=== PATIENT | female | born 1995 | race Two or more races ===

== ENCOUNTER 2021-08-11 22:18 | Emergency (ER) | payer MEDICAID ==
[~2021-08-11] VITALS: Ht 149.9 cm; Wt 67.0 kg
[2021-08-11 22:26] VITALS: BP 133/87
[2021-08-11 23:59] LABS: CLARITY URINE CLEAR (CLEAR); COLOR URINE YELLOW (YELLOW); KETONES URINE 1+ (NEGATIVE); LEUKOCYTE ESTERASE URINE NEGATIVE (NEGATIVE); NITRITE URINE NEGATIVE (NEGATIVE); OCCULT BLOOD URINE NEGATIVE (NEGATIVE); PROTEIN URINE NEGATIVE (NEGATIVE); SPECIFIC GRAVITY URINE 1.029 (1.005-1.030)
[2021-08-12 00:13] LABS: BASOPHILS % 0.9 % (0.0-2.0); EOSINOPHILS % 0.9 % (0.0-5.0); HEMATOCRIT. 39.8 % (36.0-48.0); HEMOGLOBIN. 13.4 g/dL (12.0-16.0); LYMPHOCYTES % 29.6 % (20.0-50.0); MEAN CORPUSCULAR HEMOGLOBIN 30.2 pg (28.0-32.0); MEAN PLATELET VOLUME 9.5 fl (7.4-10.4); NEUTROPHILS % 56.6 % (40.0-76.0); PLATELET 320 x1000/uL (130-400); RED BLOOD CELL COUNT 4.42 mill/uL (4.2-5.4)
[2021-08-12 00:21] LABS: CHLORIDE 107 mEq/L (98-107)
[2021-08-12] MEDS ORDERED: IBUP-2029 MT (00:29)
== END 2021-08-12 02:07 | disposition home or self-care (01) ==
LOC: ER 22:18
DX: R59.0 Localized enlarged lymph nodes (principal); R53.81 Other malaise; R03.0 Elevated blood-pressure reading, without diagnosis of hypertension
CPT/HCPCS: 36415; 80048; 81003; 81025; 85025; 99283

== ENCOUNTER 2022-07-15 19:09 | Emergency (ER) | payer MEDICAID ==
[~2022-07-15] VITALS: Ht 149.9 cm; Wt 69.0 kg
[~2022-07-15 19:09] MED LIST: IBUP-2029 MT
[2022-07-15 23:07] VITALS: BP 135/65
== END 2022-07-15 23:30 | disposition left against medical advice (07) ==
LOC: ER 21:17
DX: Z53.21 Procedure and treatment not carried out due to patient leaving prior to being seen by health care provider (principal)
CPT/HCPCS: 99281